=== PATIENT | male | born 1945 | race Caucasian/White ===

== ENCOUNTER → 2016-12-21 | Outpatient (CLI) | payer MEDICARE ==
--- NOTE | 2016-12-28 09:42 | RSPPFT ---
DATE OF PROCEDURE: 12/21/16 COMMENTS: Spirometry demonstrates an FEV1 of 2.0 at 70% of predicted,. FVC of 3.0 at 66%, FEF 25-75 is 50%. Post-bronchodilator study demonstrated improvement in the FVC. Lung volumes demonstrated a raised RV/TLC ratio suggesting hyperinflation and air trapping. Diffusion capacity is mildly reduced. Flow volume loops suggest an obstructive defect. IMPRESSION: 1. Mild obstructive disease. 2. Significant response to use of bronchodilator indicating some reversibility. 3. Mild reduction in diffusion capacity.
== END ==
LOC: PHRSP 07:14
PROVIDERS: ATTEND Internal Medicine Cardiovascular Disease
DX: R06.02 Shortness of breath (principal)
CPT/HCPCS: 94060; 94726; 94729